=== PATIENT | male | born 1990 | race Hispanic/Latino ===

== ENCOUNTER 2017-11-29 08:59 | Emergency (ER) | payer SELFPAY ==
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
[2017-11-29 09:57] LABS: Absolute Lymphocytes (CBC) 2.4 K/uL (0.7-4.9); Absolute Monocytes 0.8 K/uL (0.1-1.3); Absolute Neutrophil 7.2 K/uL (1.8-8.0); Basophils % 0.7 % (0-1.3); Eosinophils % 0.1 % (0-4.4); Hematocrit 48.6 % (39.6-49.0); Lymphocytes % 23.2 % (15.3-44.8); MCH 30.2 pg (27.0-35.0); MPV 7.1 fL (7.6-11.3); Monocytes % 7.6 % (3.3-12.3); RBC Red Blood Cell Count 5.52 M/uL (4.33-5.43)
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
== END 2017-11-29 12:12 | disposition home or self-care (01) ==
LOC: ER 08:59
DX: S09.8XXA Other specified injuries of head, initial encounter (principal); S00.83XA Contusion of other part of head, initial encounter; Y08.89XA Assault by other specified means, initial encounter; Y93.9 Activity, unspecified; Y92.9 Unspecified place or not applicable; F17.210 Nicotine dependence, cigarettes, uncomplicated
CPT/HCPCS: 36415; 70450; 70487; 71045; 72125; 76377; 80048; 80320; 85025; 99285

== ENCOUNTER 2019-01-12 14:06 | Emergency (ER) | payer SELFPAY ==
[2019-01-12] MEDS ORDERED: NA CHLORIDE 0.9% 2,000 ML ONE (14:18)
[2019-01-12] MEDS ORDERED: DIAZEPAM 10 MG/2 ML INJ SYRINGE ONE (14:18)
[2019-01-12 14:56] LABS: Absolute Lymphocytes (CBC) 3.6 K/uL (0.7-4.9); Basophils % 0.9 % (0-1.3); Hematocrit 42.1 % (39.6-49.0); Lymphocytes % 40.8 % (15.3-44.8); MPV 7.3 fL (7.6-11.3); RBC Red Blood Cell Count 4.98 M/uL (4.33-5.43)
[2019-01-12 15:10] LABS: Potassium 3.3 mmol/L (3.5-5.1)
--- NOTE | 2019-01-12 15:50 | EDPHYS ---
Physician Documentation [facility] Name: Rodo Riddle Age: 28 yrs Sex: Male : 1990 Arrival Date: 01/12/2019 Time: 14:08 Bed 2 Private MD: ED Physician Leo Li HPI: 01/12 14:13 This 28 yrs old Male presents to ER via Unassigned with complaints of Overdose.rn 14:13 The patient presents to the emergency department with a possible poisoning. Associated rn signs and symptoms: Pertinent positives: diaphoresis, palpitations. Severity of symptoms: At their worst the symptoms were moderate in the emergency department the symptoms are unchanged. The patient has not experienced similar symptoms in the past. Reports ingested 2g of meth, this is only 3rd time he has tried meth, did it to get high, no co-ingestion. Reports heart racing, seeing crossed-eyed, and feels high. Also feels flushed. . Historical: - Allergies: 14:20 No Known Allergies; aa5 - Home Meds: 14:20 None [Active]; aa5 - PMHx: 14:20 ADD/ADHD; aa5 - PSHx: 14:20 foot sx; aa5 - Immunization history:: Adult Immunizations unknown. - Family history:: not pertinent. - Ebola Screening: : No symptoms or risks identified at this time. - Hospitalizations: : No recent hospitalization is reported. ROS: 14:13 Constitutional: Negative for fever, chills, and weight loss, Eyes: Negative for injury, rn pain, redness, and discharge, Neck: Negative for injury, pain, and swelling, Cardiovascular: Negative for chest pain, and edema, Respiratory: Negative for shortness of breath, cough, wheezing, and pleuritic chest pain, Abdomen/GI: Negative for abdominal pain, nausea, vomiting, diarrhea, and constipation, MS/Extremity: Negative for injury and deformity, Skin: Negative for injury, rash, and discoloration, Neuro: Negative for headache, weakness, numbness, tingling, and seizure. Exam: 14:13 Constitutional: Thin male, tremulous Head/Face: Normocephalic, atraumatic. Eyes: rn Pupils 3mm, no nystagmus ENT: dry MM Cardiovascular: tachycardic, regular, no murmur Respiratory: + moderate tachypnea, no retractions Abdomen/GI: soft, non-tender Skin: Diaphoretic MS/ Extremity: Pulses equal, no cyanosis. Neurovascular intact. Full, normal range of motion. Equal circumference. Neuro: Awake and alert, GCS 15, oriented to person, place, time, and situation. Cranial nerves II-XII grossly intact. Motor strength 5/5 in all extremities. Sensory grossly intact. Vital Signs: 14:20 BP 162 / 107; Pulse 150; Resp 26 S; Pulse Ox 100% on R/A; Pain 0/10; aa5 14:20 Temp 98.6(O); aa5 14:30 BP 155 / 104; Pulse 124; Resp 22 S; Pulse Ox 99% on R/A; aa5 14:35 BP 145 / 101; Pulse 123; Resp 20 S; Pulse Ox 98% on R/A; aa5 14:48 BP 144 / 103; Pulse 120; Resp 20 S; Pulse Ox 99% on R/A; aa5 15:18 BP 137 / 93; Pulse 116; Resp 25; Pulse Ox 100% ; aa5 15:30 BP 135 / 87; Pulse 110; Resp 18; Pulse Ox 100% on R/A; aa5 15:30 MD aware of elevated HR. aa5 MDM: 14:12 Patient medically screened. rn 15:43 Differential diagnosis: Ingestion/exposure to meth. Data reviewed: vital signs, nurses rn notes, lab test result(s), EKG. 15:46 Counseling: I had a detailed discussion with the patient and/or guardian regarding: the rn historical points, exam findings, and any diagnostic results supporting the discharge/admit diagnosis, lab results, the need for outpatient follow up, to return to the emergency department if symptoms worsen or persist or if there are any questions or concerns that arise at home. Response to treatment: the patient's symptoms have markedly improved after treatment, the patient's condition has returned to base line, the patient is now symptom free, and as a result, I will discharge patient. Refusal of service: The patient/guardian displays adequate decision making capability and despite a detailed discussion of alternatives, benefits, risks, and consequences refuses: CT Scan. ED course: Pt refuses further care, is asymptomatic, is sitting in wheelchair playing around and making inflatable tools with gloves. . 01/12 14:13 Order name: CBC with Diff; Complete Time: 15:14 rn 01/12 14:13 Order name: Basic Metabolic Panel; Complete Time: 15:14 rn 01/12 14:13 Order name: CK; Complete Time: 15:14 rn 01/12 14:12 Order name: IV Start; Complete Time: 14:43 rn 01/12 14:13 Order name: EKG; Complete Time: 14:14 rn 01/12 14:13 Order name: EKG - Nurse/Tech; Complete Time: 14:42 rn Administered Medications: 14:20 Drug: Valium 10 mg Route: IVP; Site: right antecubital; aa5 14:40 Follow up: Response: No adverse reaction; Marked relief of symptoms aa5 14:21 Drug: NS 0.9% 1000 ml Route: IV; Rate: 1000 ml; Site: right forearm; aa5 15:30 Follow up: Pt refused the rest of NS bolus (see nurse's notes) aa5 15:30 Follow up: IV Intake: 150ml aa5 14:21 Drug: NS 0.9% 1000 ml Route: IV; Rate: 1000 ml; Site: right forearm; aa5 15:00 Follow up: Response: No adverse reaction; IV Status: Completed infusion; IV Intake: aa5 1000ml Disposition: 01/12/19 15:47 Discharged to Home. Impression: Adverse effect of amphetamines. - Condition is Stable. - Discharge Instructions: Stimulant Use Disorder-Methamphetamines. - Medication Reconciliation Form, Thank You Letter, Antibiotic Education, Prescription Opioid Use form. - Follow up: Private Physician; When: As needed; Reason: Recheck today's complaints, Re-evaluation by your physician. - Problem is new. - Symptoms have improved. Signatures: Dispatcher [employer] EDAL Leo Li MD MD rn Calderon, Audri, RN RN aa5 Corrections: (The following items were deleted from the chart) 16:01 15:47 01/12/2019 15:47 Discharged to Home. Impression: Adverse effect of amphetamines. aa5 Condition is Stable. Forms are Medication Reconciliation Form, Thank You Letter, Antibiotic Education, Prescription Opioid Use. Follow up: Private Physician; When: As needed; Reason: Recheck today's complaints, Re-evaluation by your physician. Problem is new. Symptoms have improved. rn
--- NOTE | 2019-01-12 15:50 | ER ---
Nurse's Notes [facility] Name: Rodo Riddle Age: 28 yrs Sex: Male : 1990 Arrival Date: 01/12/2019 Time: 14:08 Bed 2 Private MD: Diagnosis: Adverse effect of amphetamines Presentation: 01/12 14:20 Acuity: CONSTANZA 2 aa5 14:20 Presenting complaint: Patient states: "I ate like 2 grams of meth about 30 minutes ago aa5 and I also did a lot of ecstasy yesterday". Care prior to arrival: None. 14:20 Initial Sepsis Screen: Does the patient meet any 2 criteria? RR > 20 per min. HR > 90 aa5 bpm. Yes Does the patient have a suspected source of infection? No. Patient's initial sepsis screen is negative. 14:25 Transition of care: patient was not received from another setting of care. Onset of la1 symptoms was January 12, 2019. Risk Assessment: Do you want to hurt yourself or someone else? Patient reports no desire to harm self or others. 14:25 Method Of Arrival: Ambulatory la1 Historical: - Allergies: 14:20 No Known Allergies; aa5 - Home Meds: 14:20 None [Active]; aa5 - PMHx: 14:20 ADD/ADHD; aa5 - PSHx: 14:20 foot sx; aa5 - Immunization history:: Adult Immunizations unknown. - Family history:: not pertinent. - Ebola Screening: : No symptoms or risks identified at this time. - Hospitalizations: : No recent hospitalization is reported. Screenin:00 Abuse screen: Denies threats or abuse. Nutritional screening: No deficits noted. aa5 Tuberculosis screening: No symptoms or risk factors identified. Fall Risk None identified. Assessment: 14:20 General: Appears distressed, uncomfortable, Behavior is cooperative, anxious, restless. aa5 Pain: Denies pain. Neuro: Level of Consciousness is awake, alert, obeys commands, Oriented to person, place, time, situation. Cardiovascular: Heart tones S1 S2 present Rhythm is sinus tachycardia. Respiratory: Airway is patent Respiratory effort is even, unlabored, Respiratory pattern is regular, symmetrical, tachypnea Breath sounds are clear bilaterally. GI: Abdomen is flat, non-distended, Bowel sounds present X 4 quads. Abd is soft and non tender X 4 quads. : No signs and/or symptoms were reported regarding the genitourinary system. EENT: No signs and/or symptoms were reported regarding the EENT system. Derm: Skin is diaphoretic, Skin is normal, Skin temperature is cool. Musculoskeletal: Range of motion: intact in all extremities. 14:40 Reassessment: Marked relief of symptoms noted. Pt is calm, resting in bed with eyes aa5 closed, pt easy to arouse to verbal stimuli, respirations are relaxed and unlabored, skin is moist/cool/pink. Warm blanket given. . 15:00 Reassessment: Patient is alert, oriented x 3, equal unlabored respirations, skin aa5 warm/dry/pink. Patient denies pain at this time. Patient states feeling better. Patient states symptoms have improved. 15:20 Reassessment: Katie at bedside for CT scan, pt states he needs to use the restroom, pt aa5 wheeled to restroom, pt states "never mind I just need to find my girlfriend, where did she go?, she told me she was just walking outside for my phone health educator", notified pt that I did not see his girlfriend walk out of ER. Pt states "I just want to leave right now, I am totally fine now, and I feel way better". Pt refusing the rest of IV fluids, pt refusing CT scan at this time. MD was notified. . 15:40 Reassessment: MD at bedside speaking to patient. . aa5 15:50 Reassessment: Patient is alert, oriented x 3, equal unlabored respirations, skin aa5 warm/dry/pink. Vital Signs: 14:20 BP 162 / 107; Pulse 150; Resp 26 S; Pulse Ox 100% on R/A; Pain 0/10; aa5 14:20 Temp 98.6(O); aa5 14:30 BP 155 / 104; Pulse 124; Resp 22 S; Pulse Ox 99% on R/A; aa5 14:35 BP 145 / 101; Pulse 123; Resp 20 S; Pulse Ox 98% on R/A; aa5 14:48 BP 144 / 103; Pulse 120; Resp 20 S; Pulse Ox 99% on R/A; aa5 15:18 BP 137 / 93; Pulse 116; Resp 25; Pulse Ox 100% ; aa5 15:30 BP 135 / 87; Pulse 110; Resp 18; Pulse Ox 100% on R/A; aa5 15:30 MD aware of elevated HR. aa5 ED Course: 14:08 Patient arrived in ED. mr 14:12 Leo Li MD is Attending Physician. rn 14:20 Initial lab(s) drawn, by mn, sent to lab. Inserted saline lock: 18 gauge in right aa5 antecubital area, using aseptic technique. Blood collected. 14:20 Patient has correct armband on for positive identification. Bed in low position. Call aa5 light in reach. Side rails up X2. Adult w/ patient. associate professor of counseling on. Pulse ox on. NIBP on. 14:21 Inserted saline lock: 18 gauge in right forearm, using aseptic technique. aa5 14:23 Radiology exam delayed due to pt not ready, peggy to call. sj 14:25 Triage completed. la1 14:32 Emma Lo, RN is Primary Nurse. aa5 14:56 EKG done, by java technical architect. reviewed by Leo Li MD. sm3 15:50 IV discontinued, intact, bleeding controlled, No redness/swelling at site. Pressure aa5 dressing applied, 18 G to R AC dc'd and 18 G to R FA dc'd. 15:50 No provider procedures requiring assistance completed. aa5 Administered Medications: 14:20 Drug: Valium 10 mg Route: IVP; Site: right antecubital; aa5 14:40 Follow up: Response: No adverse reaction; Marked relief of symptoms aa5 14:21 Drug: NS 0.9% 1000 ml Route: IV; Rate: 1000 ml; Site: right forearm; aa5 15:30 Follow up: Pt refused the rest of NS bolus (see nurse's notes) aa5 15:30 Follow up: IV Intake: 150ml aa5 14:21 Drug: NS 0.9% 1000 ml Route: IV; Rate: 1000 ml; Site: right forearm; aa5 15:00 Follow up: Response: No adverse reaction; IV Status: Completed infusion; IV Intake: aa5 1000ml Intake: 15:00 IV: 1000ml; Total: 1000ml. aa5 15:30 IV: 150ml; Total: 1150ml. aa5 Outcome: 15:47 Discharge ordered by . rn 15:50 Discharged to home via wheelchair, with significant other. aa5 15:50 Condition: improved 15:50 Discharge instructions given to patient, Instructed on discharge instructions, follow up and referral plans. Demonstrated understanding of instructions, follow-up care. 15:55 Patient left the ED. aa5 Signatures: Sil Morataya, Leo Valdivia MD MD rn Calderon, Audri RN RN aa5 Emmanuel Woodard RN RN la1 Bertha Hope 3 Corrections: (The following items were deleted from the chart) 14:45 14:25 Presenting complaint: Patient states: I ate like 2 grams of meth about 30 minutes aa5 ago la 14:45 14:25 Acuity: CONSTANZA 2 la1 aa5 14:45 14:30 Care prior to arrival: None. aa5 aa5 16:01 14:30 IV Intake: 150ml aa5 aa5 16:02 16:01 Patient left the ED. aa5 aa5 16:04 15:55 IV discontinued, intact, bleeding controlled, No redness/swelling at site. aa5 Pressure dressing applied, 18 G to R AC dc'd and 18 G to R FA dc'd aa5
[2019-01-12 16:10] VITALS: BP 137/93; O2SAT 100
--- NOTE | 2019-01-12 18:30 | EKG ---
Test Date: 2019-01-12 Test Time: 14:41:50 Tea Bag Packer: FANNIE MEASUREMENT RESULTS: Intervals: Rate: 123 SD: 152 QRSD: 92 QT: 312 QTc: 446 [place]: P: 72 SD: 152 QRS: 83 T: 66 INTERPRETIVE STATEMENTS: Sinus tachycardia Otherwise normal ECG Compared to ECG 01/09/2015 03:51:48 Sinus rhythm no longer present Left ventricular hypertrophy no longer present Electronically Signed On 01-12-19 18:29:19 CDT by Dominic Geiger
== END 2019-01-12 16:01 | disposition home or self-care (01) ==
LOC: ER 14:06
DX: T43.621S Poisoning by amphetamines, accidental (unintentional), sequela (principal); R00.2 Palpitations; R61 Generalized hyperhidrosis
CPT/HCPCS: 36415; 80048; 82550; 85025; 93005; 96361; 96374; 99284; J3360; J7030

== ENCOUNTER 2019-11-28 20:55 | Emergency (ER) | payer SELFPAY ==
--- OUTSIDE RECORDS SUMMARY | 2019-11-28 20:57 | XMS REPORT | Continuity of Care Document ---
:1990 Author Organization [facility] t Address [address] [place] [address] Care Team Providers Name Role Phone Unavailable Unavailable Unavailable Problems This patient has no known problems. Allergies, Adverse Reactions, Alerts This patient has no known allergies or adverse reactions. Medications This patient has no known medications. Procedures This patient has no known procedures. Results This patient has no known results.
[2019-11-28 21:30] LABS: Absolute Lymphocytes (CBC) 3.7 K/uL (0.7-4.9); Hematocrit 37.6 % (39.6-49.0); Lymphocytes % 41.1 % (15.3-44.8); MPV 7.1 fL (7.6-11.3); RBC Red Blood Cell Count 4.33 M/uL (4.33-5.43)
[2019-11-28] MEDS ORDERED: ONDANSETRON 4 MG/2 ML VIAL ONE (21:32)
[2019-11-28] MEDS ORDERED: NA CHLORIDE 0.9% 1,000 ML ONE (21:32)
[2019-11-28] MEDS ORDERED: KETOROLAC 30 MG/ML INJ ONE (21:32)
[2019-11-28 21:45] LABS: ALT/SGPT 26 U/L (12-78); AST/SGOT 25 U/L (15-37); Albumin 3.6 g/dL (3.4-5.0); Alkaline Phosphatase 47 U/L (45-117); BUN Blood Urea Nitrogen 10 mg/dL (7-18); Bicarbonate 29 mmol/L (21-32); Bilirubin Direct < 0.1 mg/dL (0-0.2); Bilirubin Total 0.2 mg/dL (0.2-1.0); Glucose Level 92 mg/dL (74-106); Lipase 224 U/L (73-393); Protein, Total 6.8 g/dL (6.4-8.2); Sodium Level 143 mmol/L (136-145)
[2019-11-28 22:21] LABS: Urine Blood NEGATIVE (NEG); Urine Glucose NEGATIVE (NEG); Urine Protein NEGATIVE (NEG); Urine Specific Gravity 1.025 (1.005-1.030)
[2019-11-28] MEDS ORDERED: MORPHINE 4 MG/ML SYR ONE (22:25)
--- NOTE | 2019-11-28 23:23 | EDPHYS ---
Physician Documentation [facility] Name: Rodo Riddle Age: 28 yrs Sex: Male : 1990 Arrival Date: 11/28/2019 Time: 20:55 Bed 7 Private MD: ED Physician Vic Koroma HPI: 11/28 00:29 This 28 yrs old Male presents to ER via Ambulatory with complaints of R Side tw4 Pain, Dizziness. 00:29 The patient presents with abdominal pain. Onset: The symptoms/episode began/occurred tw4 today. The symptoms do not radiate. Associated signs and symptoms: none. The symptoms are described as dull. Modifying factors: The symptoms are alleviated by nothing, the symptoms are aggravated by nothing. The patient has not experienced similar symptoms in the past. 00:30 The patient presents with abdominal pain in the right upper quadrant. tw4 00:30 Severity of pain: At its worst the pain was moderate in the emergency department the tw4 pain has resolved. Historical: - Allergies: 11/27 21:02 No Known Allergies; ca1 - Home Meds: 21:02 None [Active]; ca1 - PMHx: 21:02 ADD/ADHD; ca1 - PSHx: 21:02 foot sx; ca1 - Immunization history:: Adult Immunizations up to date. - Social history:: Smoking status: Patient reports the use of cigarette tobacco products, smokes one-half pack cigarettes per day. ROS: 11/28 00:29 Constitutional: Negative for fever, chills, and weight loss, Eyes: Negative for injury, tw4 pain, redness, and discharge, Cardiovascular: Negative for chest pain, palpitations, and edema, Respiratory: Negative for shortness of breath, cough, wheezing, and pleuritic chest pain, Back: Negative for injury and pain, MS/Extremity: Negative for injury and deformity, Skin: Negative for injury, rash, and discoloration, Neuro: Negative for headache, weakness, numbness, tingling, and seizure. Abdomen/GI: Positive for abdominal pain, Negative for nausea and vomiting, nausea, vomiting, and diarrhea, nausea, vomiting, diarrhea, abdominal cramps, abdominal distension, anorexia, dysphagia, hematemesis, black/tarry stool. Exam: 00:31 Constitutional: This is a well developed, well nourished patient who is awake, alert, tw4 and in no acute distress. Head/Face: Normocephalic, atraumatic. Chest/axilla: Normal chest wall appearance and motion. Nontender with no deformity. No lesions are appreciated. Cardiovascular: Regular rate and rhythm with a normal S1 and S2. No gallops, murmurs, or rubs. Normal PMI, no JVD. No pulse deficits. Respiratory: Lungs have equal breath sounds bilaterally, clear to auscultation and percussion. No rales, rhonchi or wheezes noted. No increased work of breathing, no retractions or nasal flaring. Back: No spinal tenderness. No costovertebral tenderness. Full range of motion. MS/ Extremity: Pulses equal, no cyanosis. Neurovascular intact. Full, normal range of motion. Neuro: Awake and alert, GCS 15, oriented to person, place, time, and situation. Cranial nerves II-XII grossly intact. Motor strength 5/5 in all extremities. Sensory grossly intact. Cerebellar exam normal. Normal gait. 00:31 Abdomen/GI: Inspection: abdomen appears normal, Bowel sounds: normal, Palpation: moderate abdominal tenderness, in the right upper quadrant. Vital Signs: 11/27 20:59 BP 131 / 97; Pulse 100; Resp 18 S; Temp 97.3(TE); Pulse Ox 100% on R/A; Weight 81.65 kg ca1 (R); Height 5 ft. 10 in. (177.80 cm) (R); Pain 10/10; 22:30 BP 143 / 93; Pulse 65; Resp 18; Pulse Ox 100% ; Pain 0/10; mg2 20:59 Body Mass Index 25.83 (81.65 kg, 177.80 cm) ca1 MDM: 21:23 Patient medically screened. tw4 11/28 00:32 Data reviewed: vital signs, nurses notes. Data interpreted: Pulse oximetry: tw4 Interpretation: normal. Counseling: I had a detailed discussion with the patient and/or guardian regarding: the historical points, exam findings, and any diagnostic results supporting the discharge/admit diagnosis. Special discussion: Based on the patient's Hx, exam, and Dx evaluation, there is no indication for emergent surgery or inpatient Tx. It is understood by the patient/guardian that if the Sx's persist or worsen they need to return immediately for re-evaluation. I discussed with the patient/guardian in detail that at this point there is no indication for admission to the hospital. It is understood, however, that if the symptoms persist or worsen the patient needs to return immediately for re-evaluation. 11/27 21:14 Order name: Basic Metabolic Panel; Complete Time: 22:19 11/27 22:19 Interpretation: Normal except: CL 110; GFR 79; CA 8.2. 11/27 21:14 Order name: CBC with Diff; Complete Time: 22:19 11/27 22:20 Interpretation: Normal except: HGB 12.8; HCT 37.6; MPV 7.1. 11/27 21:14 Order name: Hepatic Function; Complete Time: 22:19 11/27 22:20 Interpretation: Within normal limits. 11/27 21:14 Order name: Lipase; Complete Time: 22:19 [facility] 11/27 22:20 Interpretation: Within normal limits: LIP 224. [facility] 11/27 21:14 Order name: CT Stone Protocol [facility] 11/27 22:19 Order name: Urine Dipstick--Ancillary (enter results); Complete Time: 23:02 ca5 11/27 23:02 Interpretation: Within normal limits: USPGR 1.025. 11/27 21:14 Order name: IV Saline Lock; Complete Time: 21:27 11/27 21:14 Order name: Labs collected and sent; Complete Time: 21:27 11/27 21:14 Order name: Urine Dipstick-Ancillary (obtain specimen); Complete Time: 21:28 Administered Medications: 11/27 21:23 CANCELLED (Physician Discretion): NS 0.9% 1000 ml IV at 1 bolus Per protocol; 1000 mL tw4 bolus 21:26 Drug: TORadol 30 mg Route: IVP; Site: right antecubital; mg2 22:25 Follow up: Response: No adverse reaction mg2 21:27 Drug: NS 0.9% 1000 ml Route: IV; Rate: 1 bolus; Site: right antecubital; mg2 21:28 Drug: Zofran (Ondansetron) 4 mg Route: IVP; Site: right antecubital; mg2 22:24 Follow up: Response: No adverse reaction mg2 22:24 Not Given (Patient Refused; patient is pain free now): morphine 4 mg IVP once; RASS on mg2 ADMIN: Combtv4, Very Agttd3, Agttd2, Rstlss1, AlertClm0, Drwsy-1, Lt Sdtn-2, Mod Sdtn-3, Dp Sdtn-4, UnArsble-5 Disposition: 11/28/19 23:22 Discharged to Home. Impression: Cholelithiasis. - Condition is Stable. - Discharge Instructions: Biliary Colic, Adult. - Prescriptions for Ibuprofen 800 mg Oral Tablet - take 1 tablet by ORAL route every 12 hours As needed take with food; 20 tablet. Zofran 4 mg Oral Tablet - take 1 tablet by ORAL route every 12 hours As needed; 20 tablet. - Medication Reconciliation Form, Thank You Letter, Antibiotic Education, Prescription Opioid Use form. - Follow up: Private Physician; When: Upon discharge from the Emergency Department; Reason: Recheck today's complaints, Continuance of care, Re-evaluation by your physician. - Problem is new. - Symptoms have improved. Signatures: Dispatcher [employer] EDMS Vic Koroma MD MD tw4 Russ Haywood, RN RN mg2 Amie Sunshine RN RN ca1 Corrections: (The following items were deleted from the chart) 21:23 21:14 NS 0.9% 1000 ml IV at 1 bolus Per protocol; 1000 mL bolus ordered. tw4 tw4 23:49 23:22 11/28/2019 23:22 Discharged to Home. Impression: Cholelithiasis. Condition is mg2 Stable. Forms are Medication Reconciliation Form, Thank You Letter, Antibiotic Education, Prescription Opioid Use. Follow up: Private Physician; When: Upon discharge from the Emergency Department; Reason: Recheck today's complaints, Continuance of care, Re-evaluation by your physician. Problem is new. Symptoms have improved. tw4
--- NOTE | 2019-11-28 23:23 | ER ---
Nurse's Notes [facility] Name: Rodo Riddle Age: 28 yrs Sex: Male : 1990 Arrival Date: 11/28/2019 Time: 20:55 Bed 7 Private MD: Diagnosis: Cholelithiasis Presentation: 11/27 20:59 Chief complaint: Patient states: RUQ pain radiating to the R mid back, started about ca1 1-2 hrs ago. Reports Nausea and diarrhea. Denies vomiting. Denies history of kidney stones. Denies history of gall stones. Coronavirus screen: Patient denies a cough. Patient denies shortness of breath or difficulty breathing. Patient denies measured and/or subjective temperature greater than 100.4F prior to today's visit. Patient denies travel on a cruise ship or to a country the [facility] currently lists as an affected area. Patient denies contact with known and/or suspected case of COVID-19. Proceed with normal triage. Ebola Screen: Patient negative for fever greater than or equal to 101.5 degrees Fahrenheit, and additional compatible Ebola Virus Disease symptoms Patient denies exposure to infectious person. Patient denies travel to an Ebola-affected area in the 21 days before illness onset. No symptoms or risks identified at this time. Initial Sepsis Screen: Does the patient meet any 2 criteria? No. Patient's initial sepsis screen is negative. Does the patient have a suspected source of infection? No. Patient's initial sepsis screen is negative. Risk Assessment: Do you want to hurt yourself or someone else? Patient reports no desire to harm self or others. Onset of symptoms was November 28, 2019. 20:59 Method Of Arrival: Ambulatory ca1 20:59 Acuity: CONSTANZA 3 ca1 Triage Assessment: 21:02 General: Appears in no apparent distress. uncomfortable. ca1 Historical: - Allergies: 21:02 No Known Allergies; ca1 - Home Meds: 21:02 None [Active]; ca1 - PMHx: 21:02 ADD/ADHD; ca1 - PSHx: 21:02 foot sx; ca1 - Immunization history:: Adult Immunizations up to date. - Social history:: Smoking status: Patient reports the use of cigarette tobacco products, smokes one-half pack cigarettes per day. Screenin:30 Abuse screen: Denies threats or abuse. Denies injuries from another. Nutritional mg2 screening: No deficits noted. Tuberculosis screening: No symptoms or risk factors identified. Fall Risk IV access (20 points). Assessment: 21:28 General: Appears uncomfortable, Behavior is cooperative, restless. Pain: Complains of mg2 pain in abdomen Pain currently is 10 out of 10 on a pain scale. Quality of pain is described as aching. Neuro: Level of Consciousness is awake, alert, obeys commands, Oriented to person, place, time, situation. Cardiovascular: Capillary refill < 3 seconds Patient's skin is warm and dry. Respiratory: Airway is patent Respiratory effort is even, unlabored, Respiratory pattern is regular, symmetrical. GI: Reports upper abdominal pain, diarrhea, nausea. : No signs and/or symptoms were reported regarding the genitourinary system. EENT: No signs and/or symptoms were reported regarding the EENT system. Derm: Skin is intact, is healthy with good turgor, Skin is pink, warm \T\ dry. normal. Musculoskeletal: Circulation, motion, and sensation intact. Capillary refill < 3 seconds. 22:30 Reassessment: Patient appears in no apparent distress at this time. Patient and/or mg2 family updated on plan of care and expected duration. Pain level reassessed. Patient is alert, oriented x 3, equal unlabored respirations, skin warm/dry/pink. Patient denies pain at this time. Patient states feeling better. Patient states symptoms have improved. Vital Signs: 20:59 BP 131 / 97; Pulse 100; Resp 18 S; Temp 97.3(TE); Pulse Ox 100% on R/A; Weight 81.65 kg ca1 (R); Height 5 ft. 10 in. (177.80 cm) (R); Pain 10/10; 22:30 BP 143 / 93; Pulse 65; Resp 18; Pulse Ox 100% ; Pain 0/10; mg2 20:59 Body Mass Index 25.83 (81.65 kg, 177.80 cm) ca1 ED Course: 20:55 Patient arrived in ED. ds1 21:01 Triage completed. ca1 21:02 Arm band placed on right wrist. ca1 21:12 Vic Koroma MD is Attending Physician. tw4 21:13 Russ Haywood RN is Primary Nurse. mg2 21:25 Inserted saline lock: 20 gauge in right antecubital area, using aseptic technique. mg2 Blood collected. 21:30 Patient has correct armband on for positive identification. Placed in gown. mg2 21:30 No provider procedures requiring assistance completed. mg2 21:48 CT Stone Protocol In Process Unspecified. EDMS 23:48 IV discontinued, intact, bleeding controlled, No redness/swelling at site. Pressure mg2 dressing applied. Administered Medications: 21:23 CANCELLED (Physician Discretion): NS 0.9% 1000 ml IV at 1 bolus Per protocol; 1000 mL tw4 bolus 21:26 Drug: TORadol 30 mg Route: IVP; Site: right antecubital; mg2 22:25 Follow up: Response: No adverse reaction mg2 21:27 Drug: NS 0.9% 1000 ml Route: IV; Rate: 1 bolus; Site: right antecubital; mg2 21:28 Drug: Zofran (Ondansetron) 4 mg Route: IVP; Site: right antecubital; mg2 22:24 Follow up: Response: No adverse reaction mg2 22:24 Not Given (Patient Refused; patient is pain free now): morphine 4 mg IVP once; RASS on mg2 ADMIN: Combtv4, Very Agttd3, Agttd2, Rstlss1, AlertClm0, Drwsy-1, Lt Sdtn-2, Mod Sdtn-3, Dp Sdtn-4, UnArsble-5 Outcome: 23:22 Discharge ordered by . tw4 23:49 Discharged to home ambulatory. mg2 23:49 Condition: stable 23:49 Discharge instructions given to patient, Instructed on discharge instructions, follow up and referral plans. medication usage, Demonstrated understanding of instructions, follow-up care, medications, Prescriptions given X 2. 23:49 Patient left the ED. mg2 Signatures: Dispatcher [employer] [facility] ManBessie ds1 Vic Koroma MD MD tw4 Russ Haywood RN RN mg2 Amie Sunshine RN RN ca1 Corrections: (The following items were deleted from the chart) 21:03 20:59 Chief complaint: Patient states: RUQ pain radiating to the R mid back, started ca1 about 1-2 hrs ago. Reports Nausea and diarrhea. Denies vomiting ca1
[2019-11-28 23:58] VITALS: TEMP 97.3; O2SAT 100
[2019-11-28 23:59] VITALS: BP 143/93
--- NOTE | 2019-11-29 09:33 | RAD REPORT ---
EXAM DESCRIPTION: CT - Stone Protocol - 11/28/2019 10:37 pm CLINICAL HISTORY: The patient is 28 years old and is Male; KIDNEY STONES , right upper quadrant pain radiating to mid back. TECHNIQUE: Axial computed tomography images of the abdomen and pelvis without intravenous contrast. Sagittal and coronal reformatted images were created and reviewed. This CT exam was performed usi ng one or more of the following dose reduction techniques: automated exposure control, adjustment o f the mA and/or kV according to patient size, and/or use of iterative reconstruction technique. COMPARISON: No relevant prior studies available. FINDINGS: Lung bases: Unremarkable. No mass. No consolidation. ABDOMEN: Liver: Unremarkable. Gallbladder and bile ducts: Small gallstone seen. No ductal dilation. Pancreas: Unremarkable. No ductal dilation. Spleen: Unremarkable. No splenomegaly. Adrenals: Unremarkable. No mass. Kidneys and ureters: Unremarkable. No obstructing stones. No hydronephrosis. Stomach and bowel: Unremarkable. No obstruction. No mucosal thickening. PELVIS: Appendix: No findings to suggest acute appendicitis. Bladder: Unremarkable. No stones. Reproductive: Unremarkable as visualized. ABDOMEN and PELVIS: Intraperitoneal space: Unremarkable. No free air. No significant fluid collection. Bones/joints: No acute fracture. No dislocation. Soft tissues: Unremarkable. Vasculature: Unremarkable. No abdominal aortic aneurysm. Lymph nodes: Unremarkable. No enlarged lymph nodes. IMPRESSION: 1. No acute intra-abdominal abnormality. 2. Cholelithiasis. Electronically signed by: Francisco Bower MD 11/28/2019 9:56 PM CDT Due to temporary technical issues with the PACS/Fluency reporting system, reports are being signed by the in house radiologist without review as a courtesy to ensure prompt reporting. The interpreting r adiologist is fully responsible for the content of the report.
== END 2019-11-28 23:49 | disposition home or self-care (01) ==
LOC: ER 20:55
DX: K80.20 Calculus of gallbladder without cholecystitis without obstruction (principal); F17.210 Nicotine dependence, cigarettes, uncomplicated
CPT/HCPCS: 36415; 74176; 76377; 80048; 80076; 81003; 83690; 85025; 96374; 96375; 99284; J2405; J7030